=== PATIENT | male | born 1940 | race Caucasian/White ===

== ENCOUNTER 2024-10-28 12:31 | Inpatient (IN) | payer MEDICARE, MEDICAID, SELFPAY ==
[2024-10-28] VITALS (25 sets, daily range): BP systolic 99–145; BP diastolic 43–100; PULSE 90–121; RESP 16–29; TEMP 36.7–36.8; O2SAT 88–97; BMI 21.7; BMI 19.3
--- NOTE | 2024-10-28 12:56 | XRR_ITS ---
PROCEDURE INFORMATION: Exam: XR Chest Exam date and time: 10/28/2024 1:05 PM Age: 84 years old Clinical indication: Shortness of breath; Prior surgery; Surgery date: 6+ months; Surgery type: Pacemaker; Additional info: SOB TECHNIQUE: Imaging protocol: Radiologic exam of the chest. Views: 1 view. COMPARISON: No relevant prior studies available. FINDINGS: Tubes, catheters and devices: Cardiac pacemaker on the left with leads in satisfactory position. Lungs: Both lungs demonstrate diffuse hazy interstitial coarsening. I see no dense consolidation or mass. Pleural spaces: Unremarkable. No pleural effusion. No pneumothorax. Heart/Mediastinum: Unremarkable. No cardiomegaly. Bones/joints: Unremarkable. XR/XR chest 1V portable [id number] IMPRESSION: Hazy interstitial lung disease bilaterally. I am uncertain as to whether this represents chronic interstitial coarsening versus acute interstitial pneumonia
--- NOTE | 2024-10-28 12:58 | ECG_ITS ---
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 Measurements Intervals [place] Rate: 106 P: 65 [place]: 218 QRS: 66 QRSD: 106 T: 88 QT: 377 QTc: 503 Interpretive Statements SINUS TACHYCARDIA WITH FIRST DEGREE AV BLOCK POSSIBLE ANTERIOR MYOCARDIAL INFARCTION , OF INDETERMINATE AGE [30 ms Q WAVE IN V3/V4, OR R < 0.2 mV IN V4] MODERATE T-WAVE ABNORMALITY, CONSIDER LATERAL ISCHEMIA [-0.1+ mV T-WAVE IN I/aVL/V5/V6] No previous ECG available for comparison Electronically Signed On 10-28-2024 13:33:32 SHEET MILL SUPERVISOR by Radha Mehta M.D. [id number]
[2024-10-28 13:25] LABS: Basophils % 0.1 %; Eosinophils % 0.1 %; Hematocrit 46.9 % (37-53); Lymphocytes # 0.6 10^3/uL (0.8-4.8); Lymphocytes % 2.4 %; Mean Corpuscular HGB Conc 33.3 g/dL (30-55); Mean Corpuscular Hemoglobin 31.4 pg (27-33); Mean Corpuscular Volume 94.4 fl (82-101); Mean Platelet Volume 9.3 fL (7.4-10.4); Monocytes # 1.1 10^3/uL (0.2-0.9); Monocytes % 4.5 %; Neutrophils # 21.53 10^3/uL (1.8-7.7); Neutrophils % 92.1 %; Nucleated Red Blood Cells % 0 %; Platelet Count 321 10^3/cmm (157-399); Red Blood Count 4.97 10^6/uL (3.85-5.65); Red Cell Distribution Width 14.4 % (12.1-15.1)
[2024-10-28 13:26] LABS: ABG PCO2 33.6 mmHg (35-45); ABG PH Result 7.34 (7.35-7.45); Arterial Blood Gas Hematocrit 45.1 % (42-52); Base Excess ABG -6.9 mmol/L (-2.0-2.0); Blood Gas Allen Test Pos; Blood Gas Operator Identificat WALCI; Blood Gas Sample Site Radial, left; Blood Gas Sample Type Arterial; Carboxyhemoglobin 1.8 %THgb (0.4-20.1); HGB O2 Sat 92.4 % (95-100); Methemoglobin < 0.0 % (0.4-1.5); Oxygen Device NC; PO2 ABG 68.4 mmHg (80.0-100.0); Total Hemoglobin 14.7 g/dL (14-18)
--- NOTE | 2024-10-28 13:44 | PC.PHAR ---
Pts' family states pt has taken himself off of most medications. It is unknown when he last took them.
[2024-10-28 13:49] LABS: Troponin(5th) Baseline 238 ng/L (0-15)
[2024-10-28 13:52] LABS: Anion Gap 31.7 (5-19); Blood Urea Nitrogen 33 mg/dL (8-23); Calcium 9.4 mg/dL (8.5-10.5); Carbon Dioxide 20 mmol/L (22-29); Chloride 87 mmol/L (98-107); Creatinine Clr Calc Pharmacy 36.7451; Glucose 174 mg/dL (65-115); Osmolality Calculated 289 mOsm/kg (285-295); Potassium 4.7 mmol/L (3.5-5.1); Sodium 134 mmol/L (136-145)
[2024-10-28 14:02] LABS: Covid PCR NEGATIVE (Negative); Influenza A NEGATIVE (Negative); Influenza B NEGATIVE (Negative); Respiratory Syncytial Virus Ce NEGATIVE (Negative)
--- NOTE | 2024-10-28 14:05 | USR_ITS ---
PROCEDURE INFORMATION: Exam: US Duplex Right Lower Extremity Veins, Limited Exam date and time: 10/28/2024 3:41 PM Age: 84 years old Clinical indication: Pain; Leg, lower; Right; Additional info: Calf tenderness TECHNIQUE: Imaging protocol: Real-time duplex ultrasound of the right extremity with 2-D gan scale, color Doppler flow and spectral waveform analysis including responses to compression and other maneuvers (when performed) with image documentation. Limited exam was focused on the right lower extremity veins. COMPARISON: No relevant prior studies available. FINDINGS: Right deep veins: Unremarkable. The common femoral, femoral, proximal profunda femoral and popliteal veins are patent without thrombus. Normal Doppler waveforms. Normal compressibility and/or augmentation response. Superficial veins: Greater saphenous vein at the saphenofemoral junction is patent without thrombus. Soft tissues: Unremarkable. US/[place] [id number] IMPRESSION: No evidence of deep vein thrombosis.
--- NOTE | 2024-10-28 14:05 | CTR_ITS ---
PROCEDURE INFORMATION: Exam: CTA Chest With Contrast Exam date and time: 10/28/2024 2:42 PM Age: 84 years old Clinical indication: Pain; Chest pressure and on breathing; Additional info: Chest pain TECHNIQUE: Imaging protocol: Computed tomographic angiography of the chest with contrast. Exam focused on the arteries. 3D rendering (Not supervised by radiologist): MIP and/or 3D reconstructed images were created by the technologist. Radiation optimization: All CT scans at this facility use at least one of these dose optimization techniques: automated exposure control; mA and/or kV adjustment per patient size (includes targeted exams where dose is matched to clinical indication); or iterative reconstruction. Contrast material: OMNIPAQUE 350; Contrast volume: 72 ml; Contrast route: INTRAVENOUS (IV); COMPARISON: CR (CHEST, ) 10/28/2024 1:05 PM RADIATION DOSE METRICS: Total DLP (mGy-cm): 286.33 FINDINGS: Tubes, catheters and devices: Cardiac pacemaker on the left with leads in satisfactory position. Pulmonary arteries: Normal. No pulmonary emboli. Aorta: Unremarkable. No aortic aneurysm. No aortic dissection. Lungs: Both lungs demonstrate diffuse pulmonary edema. A 1.8 cm rounded nodule is noted in the medial aspect of the right lung apex. Pleural spaces: Small bilateral pleural effusions are noted. Heart: Mild cardiomegaly is noted. Lymph nodes: Unremarkable. No enlarged lymph nodes. Bones/joints: Unremarkable. No acute fracture. Soft tissues: Unremarkable. CT/CT angio chest PE protcl [id number] IMPRESSION: 1. Congestive heart failure with small pleural effusions 2. 1.8 cm right apical lung nodule suspicious for neoplasm. Further workup with PET-CT is recommended.For both low risk and high risk patients, consider CT Chest at 3 months, PET/CT, or biopsy. (Reference: Neetu) REFERENCES: Neetu Townsend, et al. Guidelines for Management of Incidental Pulmonary Nodules Detected on CT Images: From the Fleischner Society 2017. Radiology. 2017;284(1):228-243.
[2024-10-28 14:08] LABS: Digoxin 0.3 ng/mL (0.6-1.2)
[2024-10-28 14:13] LABS: NT Pro B Type Natriuretic Pept 32984 pg/mL (0-450)
[2024-10-28] MEDS: iohexol 350 mg/mL 500 mL Btl (per mL) IV (14:48)
--- NOTE | 2024-10-28 14:58 | ECG_ITS ---
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 Measurements Intervals [place] Rate: 109 P: 36 [place]: 215 QRS: 56 QRSD: 109 T: 107 QT: 339 QTc: 457 Interpretive Statements SINUS TACHYCARDIA WITH FIRST DEGREE AV BLOCK POSSIBLE ANTERIOR MYOCARDIAL INFARCTION , OF INDETERMINATE AGE [30 ms Q WAVE IN V3/V4, OR R < 0.2 mV IN V4] Compared to ECG 10/28/2024 12:42:29 T-wave abnormality no longer present Possible ischemia no longer present Myocardial infarct finding still present Electronically Signed On 10-29-2024 17:27:19 LINING STUFFER by Radha Mehta M.D. [id number]
[2024-10-28] MEDS: heparin 5,000 unit/mL INJ 1 mL IVP (15:18)
[2024-10-28] MEDS: heparin drip 25,000 UNIT/500 ML PREMIX 21 UNIT IV (15:31)
[2024-10-28 15:47] LABS: Troponin 5 2HR Delta -57.7 ABS# (0-10)
[2024-10-28 15:48] LABS: Troponin 5 2HR 180.3 ng/L (0-15)
--- NOTE | 2024-10-28 16:21 | ED_ITS ---
HPI - SOB/Dyspnea 2 General: Chief Complaint: Shortness of Breath/Dyspnea Stated Complaint: sob Time Seen by Provider: 10/28/24 12:36 History of Present Illness: HPI Narrative: This patient is an 84-year-old white male who presents to the emergency department via EMS with shortness of breath. Patient states he has been short of breath for the past 2 days. He has been coughing. Feels like he is getting phlegm caught in his throat. Denies having any chest pain. He has not had a fever. Patient's son came in later and states that his dad has been complaining of left arm pain for the past 2 weeks as well as right calf pain. Patient's past medical history includes hypercholesterolemia, hypertension and diabetes. He does have a pacemaker. Related Data Home Medications Medication Instructions Recorded Confirmed atorvastatin 80 mg tablet 80 mg PO .NOON 10/28/24 10/28/24 carvedilol 12.5 mg tablet 12.5 mg PO BID 10/28/24 10/28/24 clopidogrel 75 mg tablet 75 mg PO QAM 10/28/24 10/28/24 digoxin 125 mcg (0.125 mg) tablet 125 mcg PO QPM 10/28/24 10/28/24 ezetimibe 10 mg tablet 10 mg PO QAM 10/28/24 10/28/24 gabapentin 800 mg tablet 800 mg PO QID 10/28/24 10/28/24 lisinopril 2.5 mg tablet 2.5 mg PO QAM 10/28/24 10/28/24 metformin 1,000 mg tablet 1,000 mg PO BID 10/28/24 10/28/24 tramadol 50 mg tablet 100 mg PO QID PRN Pain 10/28/24 10/28/24 Allergies Allergy/AdvReac Type Severity Reaction Status Date / Time No Known Allergies Allergy Verified 10/28/24 12:40 Review of Systems 2 General: Reports: 10 or more systems reviewed and unremarkable except in HPI and below Resp: Reports: dyspnea and productive cough Physical Exam 2 Const: COMMON NORMALS: no acute distress, patient oriented x3 and no limitations GENERAL APPEARANCE: cooperative and comfortable HENMT: COMMON NORMALS: normocephalic, atraumatic, Normal nasal mucous membranes and turbinates present, moist oral mucous membranes and oropharynx normal HEAD & SCALP: normal to inspection, normocephalic and atraumatic F YULIYA & SINUS: normal facial exam NOSE: Normal nasal mucous membranes and turbinates present Eye: COMMON NORMALS: Equal, round and reactive pupils present, EOMs intact bilaterally and conjunctivae normal GENERAL EYE: appearance normal, both eyes and all related structures CONJUNCTIVA: Yes conjunctivae normal PUPIL: Yes Equal, round and reactive pupils present Neck/C-Spine: COMMON NORMALS: supple and no JVD Chest: COMMONS NORMALS: normal inspection of the chest Resp: COMMON NORMALS: normal respiratory effort AUSCULTATION: rhonchi Cardio: COMMON NORMALS: no JVD, regular rate, regular rhythm, No gallops present (Cardio), No murmurs present (Cardio) and No rub (Cardio) RATE: r egular rate RHYTHM: regular rhythm GI: COMMON NORMALS: Normal to inspection, nondistended, normoactive bowel sounds present, Soft to palpation and non-tender AUSCULTATION: Yes normoactive bowel sounds PALPATION: Yes Soft to palpation : COMMON NORMALS: Yes no CVA tenderness BLADDER/KIDNEY EXAM: Yes no CVA tenderness Back/Pelvis: COMMON NORMALS: no CVA tenderness and thoracic and lumbar spine normal to inspection Extremity: NARRATIVE EXTREMITY EXAM: Right calf tender to palpation. Neuro: COMMON NORMALS: patient oriented x3 and CN's II-XII intact bilaterally Psych: COMMON NORMALS: mental status grossly normal, Normal thought process present and cooperative THOUGHT PROCESS: Normal thought process present Skin: COMMON NORMALS: no rashes or lesions noted, turgor normal and no jaundice GENERAL SKIN EXAM: no rashes or lesions noted and turgor normal Course 2 Vital Signs: Vital signs: Vital Signs Temperature 98.1 F 10/28/24 12:41 Pulse Rate 110 H 10/28/24 16:00 Respiratory Rate 18 10/28/24 16:00 Blood Pressure 143/67 10/28/24 16:00 Pulse Oximetry 90 10/28/24 16:00 Oxygen Delivery Me thod Nasal Cannula 10/28/24 12:41 Oxygen Flow Rate 3 10/28/24 12:41 MDM - SOB/Dyspnea Medical Decision Making EKG revealed poor R wave progression through the anterior leads which could represent anterior MA/large Q waves. Unable to determine whether these are new or old. There is no EKG to compare this to. Chest x-ray was read by the radiologist as possible interstitial disease. Arterial blood gases on 3 L revealed a pH of 7.34 with a pCO2 of 34 and a pO2 of 68. Patient tested negative for COVID, flu and RSV. CBC revealed a white blood cell count of 23.4. BMP revealed a BUN of 33 and a creatinine of 1.6. Digoxin level 0.3. The baseline troponin was 238 with a 2-hour level of 180. Patient was placed on heparin and given a heparin bolus at this time delta 58. CT angiogram of the chest revealed congestive heart failure. No PE. There is a 1.8 cm nodule in the left apex concerning for possible neoplasm. Venous duplex scan of the right lower extremity did not reveal a DVT. I initially discussed the case with Dr. Mehta, neurobiologist. He recommended admitting to the hospitalist service and continuing the cardiac workup including echocardiogram. No need for acute intervention. I then discussed the case with Dr. Horta. Patient will be admitted to cardiac stepdown. Patient is not having any chest pain at this time. I did give him 40 mg of Lasix IV as well. Lab Data 10/28/24 13:16 10/28/24 13:16 Labs/Radiology: Radiology Impressions Chest X-Ray 10/28/24 12:56 IMPRESSION: Hazy interstitial lung disease bilaterally. I am uncertain as to whether this represents chronic interstitial coarsening versus acute interstitial pneumonia Chest CTA 10/28/24 14:05 IMPRESSION: 1. Congestive heart failure with small pleural effusions 2. 1.8 cm right apical lung nodule suspicious for neoplasm. Further workup with PET-CT is recommended.For both low risk and high risk patients, consider CT Chest at 3 months, PET/CT, or biopsy. (Reference: Neetu) REFERENCES: Neetu Townsend, et al. Guidelines for Management of Incidental Pulmonary Nodules Detected on CT Images: From the Fleischner Society 2017. Radiology. 2017;284(1):228-243. Venous Duplex 10/28/24 14:05 IMPRESSION: No evidence of deep vein thrombosis. Laboratory Results WBC 23.40 10^3/uL (3.29-11.43) H 10/28/24 13:16 RBC 4.97 10^6/uL (3.85-5.65) 10/28/24 13:16 Hgb 15.60 g/dL (11.27-16.99) 10/28/24 13:16 Hct 46.9 % (37-53) 10/28/24 13:16 MCV 94.4 fl (82-101) 10/28/24 13:16 MCH 31.4 pg (27-33) 10/28/24 13:16 MCHC 33.3 g/dL (30-55) 10/28/24 13:16 RDW 14.4 % (12.1-15.1) 10/28/24 13:16 Plt Count 321 10^3/cmm (157-399) 10/28/24 13:16 MPV 9.3 fL (7.4-10.4) 10/28/24 13:16 Neut % (Auto) 92.1 % 10/28/24 13:16 Lymph % (Auto) 2.4 % 10/28/24 13:16 [place] % (Auto) 4.5 % 10/28/24 13:16 Eos % (Auto) 0.1 % 10/28/24 13:16 Baso % (Auto) 0.1 % 10/28/24 13:16 Neut # (Auto) 21.53 10^3/uL (1.8-7.7) H 10/28/24 13:16 Lymph # (Auto) 0.6 10^3/uL (0.8-4.8) L 10/28/24 13:16 [place] # (Auto) 1.1 10^3/uL (0.2-0.9) H 10/28/24 13:16 Eos # (Auto) 0.0 10^3/uL (0.0-0.8) 10/28/24 13:16 Baso # (Auto) 0.0 10^3/uL (0.0-0.1) 10/28/24 13:16 Nucleated RBC % (auto) 0 % 10/28/24 13:16 Nucleated RBCs # 0.0 /100WBC 10/28/24 13:16 Specimen Type Arterial 10/28/24 13:15 Sample Site Radial, left 10/28/24 13:15 ABG pH 7.34 (7.35-7.45) L 10/28/24 13:15 ABG pCO2 33.6 mmHg (35-45) L 10/28/24 13:15 ABG pO2 68.4 mmHg (80.0-100.0) L 10/28/24 13:15 ABG HCO3 18.0 mmol/L (22-26) L 10/28/24 13:15 ABG Base Excess -6.9 mmol/L (-2.0-2.0) L 10/28/24 13:15 Sea Test Pos 10/28/24 13:15 Hematocrit 45.1 % (42-52) 10/28/24 13:15 Hgb O2 Saturation 92.4 % (95-100) L 10/28/24 13:15 Carboxyhemoglobin 1.8 %THgb (0.4-20.1) 10/28/24 13:15 Methemoglobin < 0.0 % (0.4-1.5) L 10/28/24 13:15 Total Hemoglobin 14.7 g/dL (14-18) 10/28/24 13:15 O2 Delivery Device Nc 10/28/24 13:15 O2 Liters/Min 3.0 % 10/28/24 13:15 Corrugated Fastener Driver ID [place] 10/28/24 13:15 Sodium 134 mmol/L (136-145) L 10/28/24 13:16 Potassium 4.7 mmol/L (3.5-5.1) 10/28/24 13:16 Chloride 87 mmol/L (98-107) L 10/28/24 13:16 Carbon Dioxide 20 mmol/L (22-29) L 10/28/24 13:16 Anion Gap 31.7 (5-19) H 10/28/24 13:16 BUN 33 mg/dL (8-23) H 10/28/24 13:16 Creatinine 1.6 mg/dL (0.7-1.2) H 10/28/24 13:16 GFR Calculation Not Reportable 10/28/24 13:16 Glucose 174 mg/dL (65-115) H 10/28/24 13:16 Calculated Osmolality 289 mOsm/kg (285-295) 10/28/24 13:16 Calcium 9.4 mg/dL (8.5-10.5) 10/28/24 13:16 Troponin T Baseline 238 ng/L (0-15) H* 10/28/24 13:16 Troponin T 120 Minute 180.3 ng/L (0-15) H 10/28/24 15:22 Delta Troponin T -57.7 ABS# (0-10) L 10/28/24 15:22 NT-Pro-B Natriuret Pep 36987 pg/mL (0-450) H 10/28/24 13:16 Digoxin 0.3 ng/mL (0.6-1.2) L 10/28/24 13:16 Coronavirus (PCR) Negative (Negative) 10/28/24 13:18 Influenza A (PCR) Negative (Negative) 10/28/24 13:18 Influenza Type B (PCR) Negative (Negative) 10/28/24 13:18 RSV (PCR) Negative (Negative) 10/28/24 13:18 All radiology interpretation(s) finalized by discharge Discharge Plan Discharge Condition: Stable Prescriptions: No Action atorvastatin 80 mg Tablet 80 mg PO .NOON carvedilol 12.5 mg Tablet 12.5 mg PO BID Rx Instructions: must administer with a meal/food clopidogrel 75 mg Tablet 75 mg PO QAM tramadol 50 mg Tablet 100 mg PO QID PRN (Reason: Pain) gabapentin 800 mg Tablet 800 mg PO QID metformin 1,000 mg Tablet 1,000 mg PO BID digoxin 125 mcg (0.125 mg) Tablet 125 mcg PO QPM lisinopril 2.5 mg Tablet 2.5 mg PO QAM ezetimibe 10 mg Tablet 10 mg PO QAM Coding Level of Care Code ED Sprayer Leather for Emelia Rollins
--- NOTE | 2024-10-28 17:17 | P.HP_ITS ---
Providers/Chief Complaint 2 Admitting Physician: Barrera Horta MD Chief Complaint: sob History of Present Illness Norberto Atkins is a 84 year old male with a past medical history of hypertension, hyperlipidemia, smoking, no reported history of CAD, no reported history of strokes, type 2 diabetes mellitus, history of skin cancer no recent reported of COPD, who presents to [facility] due to chest pain and shortness of breath. Currently patient is alert oriented x 3, following all commands, currently on 3 L, heart rate 110, blood pressure 143/67, he is in mild respiratory distress complaining of shortness of breath tachypnea, tachycardia. According to patient, he has been having intermittent chest pain for the last few days, has had progressive increased shortness of breath with lower extremity edema, orthopnea, paroxysmal nocturnal dyspnea, he has had also a cough, no fevers, no chills, no abdominal pain, no back pain, no lightheadedness, dizziness, no dysuria. -I had a detailed discussion with patient and his son about findings -First thing his CT angiogram of the chest did not show pulmonary embolism but did show a right upper lobe nodule highly concerning for malignancy, given his history of smoking, I do not believe that this is the source of the shortness of breath but certainly this should be taken account in terms of his goals of care, he will eventually need to follow-up with pulmonary, for consideration of biopsy -In terms of his blood work and his EKG findings, he has an NSTEMI the question is is that does he have type I versus type II NSTEMI, he is EKG does show Q waves in the anterior leads, he might have had a completed infarct a few days ago when he was having chest pain, and now worsening the residual effects, but it is difficult to say currently, the plan is to anticoagulate him pleural aspirin, statin, Plavix, consult cardiology, obtain a cardiac echocardiogram and decide how he progresses decision of stress testing versus an angiogram depending on his clinical progress his kidney function is further tests -He did also have severe CHF exacerbation, likely systolic as BNP is over 30,000 and given his respiratory status we will have to diurese and watch his kidney function -Discussed his CKD he could be CKD versus ELENA or cardiorenal syndrome -Currently inpatient status is stable, prognosis is guarded, but my worry is worsening respiratory failure, worsening CHF risk of cardiac events risks of cardiac arrhythmias -Discussed morbidity and mortality associate with his underlying condition -Patient and son voiced understanding, all questions answered, CODE STATUS discussed in detail, patient wants to be a full code however he does tell me that he is 84 if his condition is too far gone he just wants to be kept comfortable, but wants to remain a full code for now -Discussed his elevated white blood cell count I am suspicious he might have an infection, we will start him on broad-spectrum antibiotic therapy, follow his cultures Review of Systems 2 Const: Reports: fatigue and malaise; Denies: fever(s) or chills Card: Reports: chest pain Resp: Reports: dyspnea GI: Denies: abdominal pain : Denies: flank pain or difficulty urinating Neuro: Denies: headache(s), numbness in extremities or weakness in extremities Medications/Allergies Home Medications Medication Instructions Recorded Confirmed Last Taken Type atorvastatin 80 mg tablet 80 mg PO .NOON 10/28/24 10/28/24 Unknown History carvedilol 12.5 mg tablet 12.5 mg PO BID 10/28/24 10/28/24 Unknown History clopidogrel 75 mg tablet 75 mg PO QAM 10/28/24 10/28/24 Unknown History digoxin 125 mcg (0.125 mg) tablet 125 mcg PO QPM 10/28/24 10/28/24 Unknown History ezetimibe 10 mg tablet 10 mg PO QAM 10/28/24 10/28/24 Unknown History gabapentin 800 mg tablet 800 mg PO QID 10/28/24 10/28/24 Unknown History lisinopril 2.5 mg tablet 2.5 mg PO QAM 10/28/24 10/28/24 Unknown History metformin 1,000 mg tablet 1,000 mg PO BID 10/28/24 10/28/24 Unknown History tramadol 50 mg tablet 100 mg PO QID PRN Pain 10/28/24 10/28/24 Unknown History Allergies Allergy/AdvReac Type Severity Reaction Status Date / Time No Known Allergies Allergy Verified 10/28/24 12:40 PFSH Acute 2 PFSH: Medical History (Updated 10/28/24 @ 17:28 by Barrera Horta MD) History of type 2 diabetes mellitus History of hyperlipidemia History of hypertension Surgical History (Updated 10/28/24 @ 17:25 by Barrera Horta MD) History of appendectomy Family History Father CAD (coronary artery disease) Social History (Updated 10/28/24 @ 17:26 by Barrera Horta MD) Smoking and tobacco/nicotine status: current every day tobacco/nicotine user Alcohol intake: never Substance/Drug Use: never Vitals/I&O/Wt Last Vital Signs Temp 98.1 F 10/28/24 12:41 Pulse 110 H 10/28/24 16:00 Resp 18 10/28/24 16:00 BP 143/67 10/28/24 16:00 Pulse Ox 90 10/28/24 16:00 O2 Del Method Nasal Cannula 10/28/24 12:41 O2 Flow Rate 3 10/28/24 12:41 10/28/24 10/28/24 10/28/24 06:59 14:59 22:59 Intake Total 0 / 0 Balance 0 / 0 Weight last 48 hrs Weight 72.575 kg Physical Exam 2 Const: COMMON NORMALS: no acute distress and patient oriented x3 Eye: COMMON NORMALS: Equal, round and reactive pupils present and EOMs intact bilaterally Lymph: LYMPHATIC: no lymphadenopathy noted Resp: COMMON NORMALS: normal respiratory effort, No retractions and No use of accessory muscles AUSCULTATION: crackles and wheezes OTHER: Tachypnea Cardio: COMMON NORMALS: regular rate, regular rhythm, S1 normal heart sound present and S2 normal heart sound present RATE: tachycardic RHYTHM: r egular rhythm HEART SOUNDS: S1 normal heart sound present and S2 normal heart sound present GI: COMMON NORMALS: Normal to inspection, nondistended, normoactive bowel sounds present, Soft to palpation and non-tender Extremity: COMMON NORMALS: no pedal edema Neuro: COMMON NORMALS: patient oriented x3, CN's II-XII intact bilaterally and moves all extremities Psych: COMMON NORMALS: mental status grossly normal Sepsis: Is patient septic: No Focused sepsis exam performed: Yes Focused sepsis exam: DP PT pulses palpable, cap refill greater than 2 seconds Date exam was performed: 10/28/24 Time exam was performed: 17:27 Data 10/28/24 13:16 10/28/24 13:16 Micro: Microbiology 10/28/24 13:16 Blood Culture - Preliminary Blood SPECIMEN COLLECTED 10/28/24 13:12 Blood Culture - Preliminary Blood SPECIMEN COLLECTED A&P Assessment and plan (1) NSTEMI (non-ST elevated myocardial infarction): (2) Systolic CHF, acute: (3) Acute hypoxic respiratory failure: (4) Type 2 diabetes mellitus: (5) Increased anion gap metabolic acidosis: (6) Acute kidney injury: (7) Leukocytosis: (8) Right upper lobe pulmonary nodule: (9) COPD exacerbation: Plan Acute hypoxic respiratory failure -Multifactorial -Acute systolic CHF exacerbation -COPD exacerbation -Plan -Monitor respiratory status closely -Lasix 40 mg IV twice daily, 1 dose metolazone -Monitor urine output, monitor creatinine -Cardiac echocardiogram -Solu-Medrol 125 followed by 40 mg IV every 8 hours -DuoNeb -Budesonide -Follow-up blood cultures -Sputum culture -Full code -Heparin drip for DVT prophylaxis Leukocytosis -Follow-up Pro-Yong, CRP -Follow blood cultures -Follow sputum culture -Follow UA -Start Rocephin, Zithromycin for concerns for respiratory tract infection given complaints of cough Systolic CHF -Cardiac echocardiogram ordered -Monitor respiratory status closely NSTEMI -Type I versus type II -Given complaints of chest pain, highly concerned for type I -Heparin drip -Aspirin, statin, Plavix, Coreg -Cardiac echo -Cardiology consulted -Diurese as above COPD exacerbation -As above Increased anion gap metabolic acidosis -Check ketones to ensure patient does not have DKA Type 2 diabetes mellitus, low-dose sliding scale Right upper lobe, apical lung mass 1.8 cm right apical lung nodule suspicious for neoplasm. Further workup with PET-CT is recommended.For both low risk and high risk patients, consider CT Chest at 3 months, PET/CT, or biopsy. (Reference: Neetu) -Follow-up with pulmonary as outpatient Attestations 2 Medical Necessity Statement*: Patient requires hospitalization, inpatient, greater than 2 midnights, for acute hypoxic respiratory failure, leukocytosis, systolic CHF, NSTEMI, COPD, increased anion gap metabolic acidosis, a right upper lobe lung mass Diagnoses NSTEMI (non-ST elevated myocardial infarction) I21.4 Systolic CHF, acute I50.21 Acute hypoxic respiratory failure J96.01 Type 2 diabetes mellitus E11.9 Increased anion gap metabolic acidosis E87.29 Acute kidney injury N17.9 Leukocytosis D72.829 Right upper lobe pulmonary nodule R91.1 COPD exacerbation J44.1
--- NOTE | 2024-10-28 17:20 | USCV_ITS ---
Norberto Atkisn Age: 84 Gender: M : 1940 Exam Date: 10/28/2024 20:42 Ordering Phys: Barrera Horta MD Technologist: Kyle Rees [place] [facility] [place]: sob BP: 126 / 87 HR: Rhythm: Sinus Technical Quality: Adequate MEASUREMENTS (Male / Female) Normal Values 2D ECHO LV Diastolic Diameter PLAX 5.7 cm 4.2 - 5.9 / 3.9 - 5.3 cm IVS Diastolic Thickness 1.0 cm 0.6 - 1.0 / 0.6 - 0.9 cm IVS Systolic Thickness 1.2 cm LVPW Diastolic Thickness 1.2 cm 0.6 - 1.0 / 0.6 - 0.9 cm LVPW Systolic Thickness 1.7 cm LVOT Diameter 2.0 cm LV Ejection Fraction 2D Teich 34.2 % LV Ejection Fraction MOD 4C 18.8 % LV Ejection Fraction MOD 2C 16.3 % LV Ejection Fraction 2C AL 16.7 % LA Diameter 3.4 cm RA Systolic Volume 4C AL 32.8 ml RA Systolic Volume 4C MOD 33.1 ml LA Sys Volume AL 45.7 cm cubed LA Sys Volume Index AL 26.4 cm cubed/m squared Aorta at Sinotubular Diameter 1.7 cm IVC Diameter 1.7 cm M-MODE LA Ao Ratio MM 1.0 AV Cusp Separation MM 0.9 cm FINDINGS Left Ventricle Severe diffuse hypokinesia left ventricular ejection fraction of around 17%. Moderately dilated LV cavity Right Ventricle Pacemaker wire in the right ventricle. Possibly of normal size ejection fraction Right Atrium Possibly of normal size Left Atrium Appears mildly dilated Mitral Valve Thickened mitral valve. Mild mitral annular calcification. Aortic Valve Thickened aortic valve with restricted mobility Tricuspid Valve Could not be visualized well Pulmonic Valve Could not be visualized well Pericardium No pericardial effusion. Aorta Normal aortic annulus size. IVC Possibly of normal size CONCLUSIONS Limited 2D echo, Severe diffuse hypokinesia left ventricular ejection fraction of around 17%. Moderately dilated LV cavity. Left atrium appears to be mildly dilated Thickened mitral valve. Mild mitral annular calcification. Thickened aortic valve with restricted mobility. There is no pericardial effusion. Technically difficult study because of poor apical window No similar previous studies are available for comparison Dr Radha Mehta MD [facility] (Electronically Signed) Final Date: 28 October 2024 21:23 S
[2024-10-28 17:33] LABS: Ketone (Acetest) Serum Negative (Negative)
[2024-10-28 17:34] LABS: C Reactive Protein 37.7 mg/L (0.0-4.9); Procalcitonin 21.48 ng/mL (0-0.5)
[2024-10-28 17:41] LABS: Lipase 73 U/L (13-60)
[2024-10-28] MEDS: FUROsemide 10 mg/mL SDV 4mL 40 MG IVP (17:54)
[2024-10-28] MEDS: cefTRIAXone 1,000 mg SDV 1000 MG IVP (17:56)
[2024-10-28] MEDS: AZITHROMYCIN ADD-Vantage 500 MG in 0.9% NaCl ADD-Vantage 250 ML 250 MG IV (17:57)
[2024-10-28] MEDS: metOLazone 5 MG Tablet PO (18:03)
[2024-10-28] MEDS: potassium chloride ER 20 mEq Tablet PO (18:03)
[2024-10-28 18:22] LABS: NT Pro B Type Natriuretic Pept 37737 pg/mL (0-450)
--- NOTE | 2024-10-28 18:36 | P.CONIM_ITS ---
Providers/Reason For Consult 2 Consulting Physician/Specialty*: VENECIA Mehta MD/cardiology Reason for Consult*: Patient with elevated troponin T and abnormal EKG Requesting Physician: Dr. Horta Attending Physician: Barrera Horta MD History of Present Illness History of Present Illness Norberto Atkins is a 84 year old male, he is admitted to hospital through the emergency room where he presented with complaints of progressive shortness of breath and weakness. He was found to elevated troponin T. Cardiology consult is requested for further cardiac evaluation recommendations. This patient extremely poor historian. He is hard of hearing and also is very forgetful. Information is mostly from his son and from the medical staff. According to son, he was having shortness of breath since . His family members called an ambulance on because of shortness of breath. But the patient refused to come to the hospital. His symptoms started getting worse. He apparently lives alone and was finding it difficult to ambulate. He was found to be extremely weak and tired. For these reasons, he was brought to the hospital emergency room. He has been having a cough. Also possible low- grade fever. He was found to elevated white cell count in the emergency room. On further questioning, he also is complaining of chest pain off and on. He is not able to tell exactly how long he been having chest pain. According to him, he has pain in the upper substernal area intermittently. No chest pain at this point. He has no previous history for coronary disease, myocardial infarction or congestive heart failure. He had a permanent pacer implantation in [place], [place] many years ago. Details are not available. He also was told to have a valve problem and is being treated medically, as per his son. He has a history of peripheral artery disease. According to his son, he had a stent placed in his right? Iliac region 30 years ago. Patient is a heavy smoker. He smokes at least a pack a day for the last 70 years or so. He is noted to have COPD. No alcohol abuse or any other substance abuse. Review of Systems 2 Narrative: CONSTITUTIONAL: ? Low-grade fever and cough EYES: No blurring of vision or other visual disturbances lately. ENT: No hoarseness of voice, auditory disturbances or sore throat. CARDIOVASCULAR: As mentioned above. RESPIRATORY: Severe COPD and ongoing smoking abuse GASTROINTESTINAL: No hematemesis or melena. GENITOURINARY: ? Chronic kidney disease NEURO: No transient ischemic attacks or amaurosis. PSYCHIATRIC: No history of psychosis or major depression. HEMATOLOGIC: No bleeding disorders or significant anemia. ENDOCRINE: No history of polyuria or polydipsia. MUSCULOSKELETAL: No recent joint pain or swelling. ALLERGY/IMMUNOLOGY: As mentioned above. Medications/Allergies Home Medications Medication Instructions Recorded Confirmed Last Taken Type atorvastatin 80 mg tablet 80 mg PO .NOON 10/28/24 10/28/24 Unknown History carvedilol 12.5 mg tablet 12.5 mg PO BID 10/28/24 10/28/24 Unknown History clopidogrel 75 mg tablet 75 mg PO QAM 10/28/24 10/28/24 Unknown History digoxin 125 mcg (0.125 mg) tablet 125 mcg PO QPM 10/28/24 10/28/24 Unknown History ezetimibe 10 mg tablet 10 mg PO QAM 10/28/24 10/28/24 Unknown History gabapentin 800 mg tablet 800 mg PO QID 10/28/24 10/28/24 Unknown History lisinopril 2.5 mg tablet 2.5 mg PO QA 10/28/24 10/28/24 Unknown History metformin 1,000 mg tablet 1,000 mg PO BID 10/28/24 10/28/24 Unknown History tramadol 50 mg tablet 100 mg PO QID PRN Pain 10/28/24 10/28/24 Unknown History Allergies Allergy/AdvReac Type Severity Reaction Status Date / Time No Known Allergies Allergy Verified 10/28/24 12:40 Current Medications Generic Name Dose Route Start Last Admin Trade Name Freq PRN Reason Stop Dose Admin Ceftriaxone Sodium 1,000 mg 10/28/24 17:00 10/28/24 17:56 Ceftriaxone 1,000 Mg Sdv IVP 1,000 mg Q24H CHRISTOFER Administration Protocol Heparin Sodium/Sodium Chloride 25,000 unit in 500 mls @ 0 mls/hr 10/28/24 14:00 10/28/24 15:31 Heparin Drip IV 14.47 unit/kg/hr CONT CHRISTOFER 21 mls/hr Administration Protocol Per Protocol Azithromycin 500 mg/ Sodium 250 mls @ 250 mls/hr 10/28/24 17:00 10/28/24 17:57 Chloride IV 250 mls/hr Q24H CHRISTOFER Administration Protocol PFSH Acute 2 PFSH: Medical History History of type 2 diabetes mellitus History of hyperlipidemia History of hypertension Surgical History History of appendectomy Family History Father CAD (coronary artery disease) Social History Smoking and tobacco/nicotine status: current every day tobacco/nicotine user Alcohol intake: never Substance/Drug Use: never Vitals/I&O/Wt Last Vital Signs Temp 98.1 F 10/28/24 12:41 Pulse 112 H 10/28/24 18:30 Resp 23 H 10/28/24 18:30 BP 103/60 10/28/24 18:30 Pulse Ox 97 10/28/24 18:30 O2 Del Method Nasal Cannula 10/28/24 12:41 O2 Flow Rate 3 10/28/24 12:41 10/28/24 10/28/24 10/28/24 06:59 14:59 22:59 Intake Total 0 / 0 Balance 0 / 0 Weight last 48 hrs Weight 160 lb Physical Exam 2 Const: OTHER: GENERAL: The patient is alert and oriented times three. Not in any acute distress. HEENT: No significant pallor, icterus or lymphadenopathy.Oral cavity: There are no mucous membrane lesions. NECK: Trachea appears to be central. No masses noted. No JVD or thyromegaly appreciated. RESPIRATORY: Chest is symmetrical. No intercostals muscle retraction or any accessory muscle activation. There is no chest wall tenderness. Breath sounds are heard bilaterally. Occasional expiratory wheeze no evidence of any consolidation. BREASTS: Deferred. HEART: The heart sounds are normal. No S3 or S4. No significant murmurs. No pericardial rub ABDOMEN: No vessel pulsations or distention. No tenderness. No organomegaly appreciated. Bowel sounds are normally heard. : Deferred. RECTAL: Deferred. LYMPHATIC: No lymphadenopathy noted in the neck. EXTREMITIES: No edema or cyanosis. No clubbing. MUSCULOSKELETAL: No acute joint deformities or swelling SKIN: There are no significant rashes or ecchymosis NEUROPSYCHIATRIC: The patient is alert and oriented x3. Appears to be in a good mood. No tremors or rigidity noted. Data 10/28/24 13:16 10/28/24 13:16 Other Labs: Laboratory Last Values WBC 23.40 10^3/uL (3.29-11.43) H 10/28/24 13:16 RBC 4.97 10^6/uL (3.85-5.65) 10/28/24 13:16 Hgb 15.60 g/dL (11.27-16.99) 10/28/24 13:16 Hct 46.9 % (37-53) 10/28/24 13:16 MCV 94.4 fl (82-101) 10/28/24 13:16 MCH 31.4 pg (27-33) 10/28/24 13:16 MCHC 33.3 g/dL (30-55) 10/28/24 13:16 RDW 14.4 % (12.1-15.1) 10/28/24 13:16 Plt Count 321 10^3/cmm (157-399) 10/28/24 13:16 MPV 9.3 fL (7.4-10.4) 10/28/24 13:16 Neut % (Auto) 92.1 % 10/28/24 13:16 Lymph % (Auto) 2.4 % 10/28/24 13:16 [place] % (Auto) 4.5 % 10/28/24 13:16 Eos % (Auto) 0.1 % 10/28/24 13:16 Baso % (Auto) 0.1 % 10/28/24 13:16 Neut # (Auto) 21.53 10^3/uL (1.8-7.7) H 10/28/24 13:16 Lymph # (Auto) 0.6 10^3/uL (0.8-4.8) L 10/28/24 13:16 [place] # (Auto) 1.1 10^3/uL (0.2-0.9) H 10/28/24 13:16 Eos # (Auto) 0.0 10^3/uL (0.0-0.8) 10/28/24 13:16 Baso # (Auto) 0.0 10^3/uL (0.0-0.1) 10/28/24 13:16 Nucleated RBC % (auto) 0 % 10/28/24 13:16 Nucleated RBCs # 0.0 /100WBC 10/28/24 13:16 Specimen Type Arterial 10/28/24 13:15 Sample Site Radial, left 10/28/24 13:15 ABG pH 7.34 (7.35-7.45) L 10/28/24 13:15 ABG pCO2 33.6 mmHg (35-45) L 10/28/24 13:15 ABG pO2 68.4 mmHg (80.0-100.0) L 10/28/24 13:15 ABG HCO3 18.0 mmol/L (22-26) L 10/28/24 13:15 ABG Base Excess -6.9 mmol/L (-2.0-2.0) L 10/28/24 13:15 Sea Test Pos 10/28/24 13:15 Hematocrit 45.1 % (42-52) 10/28/24 13:15 Hgb O2 Saturation 92.4 % (95-100) L 10/28/24 13:15 Carboxyhemoglobin 1.8 %THgb (0.4-20.1) 10/28/24 13:15 Methemoglobin < 0.0 % (0.4-1.5) L 10/28/24 13:15 Total Hemoglobin 14.7 g/dL (14-18) 10/28/24 13:15 O2 Delivery Device Nc 10/28/24 13:15 O2 Liters/Min 3.0 % 10/28/24 13:15 Water Pollution Scientist ID [place] 10/28/24 13:15 Sodium 134 mmol/L (136-145) L 10/28/24 13:16 Potassium 4.7 mmol/L (3.5-5.1) 10/28/24 13:16 Chloride 87 mmol/L (98-107) L 10/28/24 13:16 Carbon Dioxide 20 mmol/L (22-29) L 10/28/24 13:16 Anion Gap 31.7 (5-19) H 10/28/24 13:16 BUN 33 mg/dL (8-23) H 10/28/24 13:16 Creatinine 1.6 mg/dL (0.7-1.2) H 10/28/24 13:16 GFR Calculation Not Reportable 10/28/24 13:16 Glucose 174 mg/dL (65-115) H 10/28/24 13:16 Calculated Osmolality 289 mOsm/kg (285-295) 10/28/24 13:16 Calcium 9.4 mg/dL (8.5-10.5) 10/28/24 13:16 Troponin T Baseline 238 ng/L (0-15) H* 10/28/24 13:16 Troponin T 120 Minute 180.3 ng/L (0-15) H 10/28/24 15:22 Delta Troponin T -57.7 ABS# (0-10) L 10/28/24 15:22 C-Reactive Protein 37.7 mg/L (0.0-4.9) H 10/28/24 13:16 NT-Pro-B Natriuret Pep 80210 pg/mL (0-450) H 10/28/24 13:16 NT-Pro-B Natriuret Pep 36353 pg/mL (0-450) H 10/28/24 13:16 Lipase 73 U/L (13-60) H 10/28/24 13:16 Procalcitonin 21.48 ng/mL (0-0.5) H 10/28/24 13:16 Digoxin 0.3 ng/mL (0.6-1.2) L 10/28/24 13:16 Serum Ketones Negative (Negative) 10/28/24 13:16 Coronavirus (PCR) Negative (Negative) 10/28/24 13:18 Influenza A (PCR) Negative (Negative) 10/28/24 13:18 Influenza Type B (PCR) Negative (Negative) 10/28/24 13:18 RSV (PCR) Negative (Negative) 10/28/24 13:18 Micro: Microbiology 10/28/24 13:16 Blood Culture - Preliminary Blood SPECIMEN COLLECTED 10/28/24 13:12 Blood Culture - Preliminary Blood SPECIMEN COLLECTED Other data: EKG showed sinus tachycardia with a rate of 109 bpm. Poor R wave progression. Nonspecific T wave changes. 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 No flow was detected in the posterior tibial or dorsalis pedis arteries. No similar previous studies are available for comparison A&P Assessment and plan (1) NSTEMI (non-ST elevated myocardial infarction): This patient has clinical features of a non-ST elevation myocardial infarction. Currently he has no chest pain. EKG changes are nonspecific. Serial enzymes are pending. He may be treated with a subcu Lovenox, Plavix, aspirin (2) Congestive heart failure: The LV function is not known. Details of the cardiac history is not available at this time The BNP is markedly elevated. We may go ahead and do an echocardiogram to evaluate the LV function and decide on further management. Qualifiers: Heart failure type: unspecified Heart failure chronicity: unspecified Qualified Code(s): I50.9 - Heart failure, unspecified (3) Dyslipidemia: Continue other current medications. (4) Type 2 diabetes mellitus: The blood sugar need to be closely monitored. Qualifiers: Diabetes mellitus [facility] insulin use: without termite exterminator use Diabetes mellitus complication status: with circulatory complication Diabetes mellitus complication detail: with peripheral angiopathy without gangrene Qualified Code(s): E11.51 - Type 2 diabetes mellitus with diabetic peripheral angiopathy without gangrene (5) Acute lower limb ischemia: Patient has no detectable flow in the common femoral artery on the right side. Possible stent in the popliteal artery appears to be occluded Patient may benefit from urgent revascularization. (6) Chronic kidney disease (CKD): Previous kidney function is not known. Qualifiers: Chronic kidney disease stage: stage 3 (moderate) Chronic kidney disease stage 3 subtype: stage 3a (GFR 45-59) Qualified Code(s): N18.31 - Chronic kidney disease, stage 3a (7) Lung mass: This needs to be further evaluated. (8) Presence of permanent cardiac pacemaker: This will be interrogated. Details are not available. (9) Leukocytosis: Possible pneumonia. He is on empiric antibiotics. Qualifiers: Leukocytosis type: unspecified Qualified Code(s): D72.829 - Elevated white blood cell count, unspecified (10) COPD exacerbation: Management as per the primary. Plan Patient restarted on heparin, Plavix, aspirin and other symptomatic measures. I will be consulting Dr. Alvarado to consider intervention for the acute limb ischemia He may requires a coronary angiogram sometime down the line. Echocardiogram tonight Patient with clinical progress, further recommendations will be made. Thank you for the opportunity to evaluate this patient make these recommendations Consult Attestations 2 Medical Necessity Statement: Patient requires continued hospital stay for close monitoring and further management Coding Level of Care Code 86759 Diagnoses NSTEMI (non-ST elevated myocardial infarction) I21.4 Congestive heart failure, unspecified HF chronicity, unspecified heart failure type I50.9 Heart failure type: unspecified Heart failure chronicity: unspecified Dyslipidemia E78.5 Type 2 diabetes mellitus with diabetic peripheral angiopathy without gangrene, without long-term current use of insulin E11.51 Diabetes mellitus [facility] insulin use: without [facility] use Diabetes mellitus complication status: with circulatory complication Diabetes mellitus complication detail: with peripheral angiopathy without gangrene Acute lower limb ischemia I99.8 Stage 3a chronic kidney disease N18.31 Chronic kidney disease stage: stage 3 (moderate) Chronic kidney disease stage 3 subtype: stage 3a (GFR 45-59) Lung mass R91.8 Presence of permanent cardiac pacemaker Z95.0 Leukocytosis, unspecified type D72.829 Leukocytosis type: unspecified COPD exacerbation J44.1
--- NOTE | 2024-10-28 18:58 | ECG_ITS ---
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 Measurements Intervals [place] Rate: 111 P: 22 HI: 212 QRS: 23 QRSD: 109 T: 90 QT: 381 QTc: 520 Interpretive Statements SINUS TACHYCARDIA WITH FIRST DEGREE AV BLOCK POSSIBLE LEFT ATRIAL ENLARGEMENT [-0.1mV P-WAVE IN V1/V2] POSSIBLE ANTERIOR MYOCARDIAL INFARCTION , OF INDETERMINATE AGE [30 ms Q WAVE IN V3/V4, OR R < 0.2 mV IN V4] Compared to ECG 10/28/2024 14:59:25 No significant changes Electronically Signed On 10-29-2024 17:27:28 FILM TESTS CHECKER by Radha Mehta M.D. [email or web address]
--- NOTE | 2024-10-28 19:15 | USCV_ITS ---
Norberto Atkins Age: 84 Gender: M : 1940 Exam Date: 10/28/2024 19:23 Ordering Phys: Andrea Larios DO Technologist: Kyle Rees [place]am Location[place] [facility] [place] Indication: right leg pain Risk Factors: Previous Vascular Surgery: RIGHT LEFT Waveform Velocity (cm/s) Velocity (cm/s) Waveform Monophasic 6.0 Iliac Prox Monophasic 10.0 Iliac Mid Monophasic 13.0 Iliac Distal N/A 4.0 SFA Prox Monophasic 7.0 SFA Dist FINDINGS Sluggish flow is noted on the right iliac artery. Some trickling of flow was noted in the distal SFA. The there is a long stented segment of the popliteal artery. Some trickling of flow was noted in the distal segment distal segment area. No flow was detected in the posterior tibial and dorsalis pedis arteries. 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 No flow was detected in the posterior tibial or dorsalis pedis arteries. No similar previous studies are available for comparison Dr Radha Mehta MD [facility] (Electronically Signed) Final Date: 28 October 2024 20:23 S
[2024-10-28 20:35] LABS: Estmated Average Glucose 120; Hemoglobin A1C 5.8 % (4.0-6.0)
[2024-10-28 20:54] LABS: Glucose Point of Care 156 mg/dL (70-110)
--- NOTE | 2024-10-28 20:57 | W.PM.OPSUD ---
Surgery/Procedure H&P Update DATE OF PROCEDURE: October 28, 2024 DATE H&P PERFORMED: 10/28/24 H&P UPDATE INFORMATION: I have reviewed H&P completed within last 30 days, I have examined patient prior to procedure and Changes to prior documentation as noted here CHANGES TO PREVIOUS DOCUMENTATION: Patient has acute onset severe right leg pain below the knee since morning. No dopplerable pulses. Doppler ultrasound showed occluded right SENIOR IT ENGINEER, minimal flow seen in the distal popliteal and SFA. No flow below the knee. Patient has intact sensation and movement. PREOP DIAGNOSIS: Acute limb ischemia PRIMARY INDICATION FOR PROCEDURE: Acute limb ischemia PLANNED PROCEDURE: Peripheral angiogram with possible intervention PATIENT REASSESSED PRIOR TO SEDATION, WITH NO CHANGE NOTED: Yes PHYSICAL EXAM: alert and oriented x 3 OTHER PERTINENT EXAM FINDINGS: Tachycardic, mild bilateral crackles. Right lower leg is cold to touch. Tender. Has intact sensation. Intact movement. No palpable or dopplerable pulses. AIRWAY EVAL/ANESTHESIA PLAN: normal airway, ASA IV, Local Anesthesia, Risks, benefits & alternatives of sedation and/or procedure discussed and Patient agrees to continue as planned ADDITIONAL INFORMATION: Moderate sedation
[2024-10-28 21:02] LABS: Troponin 5 6HR Delta -57.5 ng/L (0-12)
--- NOTE | 2024-10-28 21:03 | XACV_ITS ---
Ht: 183 cm Wt: 73 kg BSA: 1.92 m2 Gender: Male : 1940 Exam Type: Invasive Peripheral Vascular Procedure(s): Procedure Description: Peripheral Cath Diagnostic Procedure Exam Priority: Routine Lower Extremity Diagnostic Findings INDICATION: 84-year-old with past medical history of peripheral artery disease and prior stent right lower extremity presented to hospital with worsening shortness of breath and volume overload. Also since 5 AM this morning he is experiencing severe right lower extremity pain below the knee. Pulses were not palpable or dopplerable. Arterial duplex was performed that showed occluded common femoral artery with very slight forward flow in the SFA and popliteal artery with no flow seen below the knee. Procedure detail:Pulse was not palpable it left common femoral artery. Using ultrasound guidance, was able to access distal common femoral artery with micropuncture needle. Sluggish blood return was seen. Hand-injection showed occluded mid common femoral artery. As we did not have any access to go to right lower extremity, procedure was aborted with plans to transfer him for vascular surgery evaluation and possible attempt at revascularization via radial access. We do not have equipment to perform radial intervention.. 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 Because of lack of access, we aborted the procedure with plans for transfer to tertiary care center with vascular surgery availability. They can attempt radial artery access and intervention. We do not have equipment to perform radial intervention. Recommendations Transfer for vascular surgery evaluation. Continue heparin gtt. Procedure Details Findings Pre-Procedure Time Out. Identified patient by full name and date of as verbalized by the patient/guarantor. Does the consent match the physician's order: Yes. Accurate & Complete Informed Consent: Yes. Inpatient/Outpatient History & Physical on Chart: Yes. If H&P is completed, is and addenduem needed: No. Visualize and Verify Site with Patient/Guarantor: N/A. Relevant Radiology Images available: Yes. Pre-op teaching completed and patient verbalized understanding. The risks, benefits, and alternatives of sedation and/or procedure were discussed by physician. The patient agrees to continue. Procedure started. Scaleman Indications: Critical lower limb ischemia. Correct patient, site and procedure confirmed by cath team. PERRLA. Strong, equal hand audio visual director bilaterally. Lungs clear x 5 lobes. Physician notified. Patient's son, Norberto Hall, stepped out of the hospital. Dr. Dumont will give himm an update via telephone if he isn't back at the completion of the procedure at . Equipment: 6F - Femoral. Cardiac Cath Pack. ACIST Manifold Kit Model BT 2000. Heparinized Saline (2 units/mL), 1000 mL bag. Kit, Micropuncture. Physician arrived. IV Site on Arrival: 18 gauge in the left bicep area. IV Fluids: 0.9% NaCl at KVO. 0 mL infused prior to laboratory assistant. Pre Procedural Pulses: right dorsalis pedis was Absent. Pre Procedural Pulses: right posterior tibial was Absent. Oxygen started at 2liters/min via nasal canula. bilateral groins was prepped with chloroprep then draped in the usual sterile fashion. Baseline sample Acquired. HR: 100 BPM. Patient arrived with a madrigal cath in place on arrival to the laboratory assistant. Draining clear, yellow UOP. Physician scrubbed in. Immediate Pre-Procedure Time Out. Correct Patient: Yes; Correct Procedure: Yes; Correct Site: Yes; Correct Patient Position: Yes; Correct Supplies: Yes; Dried Flammable Prep: Yes; Blood Products Available: N/A;. Lidocaine 1% infiltrated to the left groin. Arterial access obtained with micropuncture set. Unable to thread wire. Wire out and hand injection performed through the access needle. Left common femoral artery occluded. left radial was prepped with chloroprep then draped in the usual sterile fashion. left radial with no pulse. Dr. Alvarado scrubbed out. Post Procedure: Pulses reassessed and unchanged. PERRLA. Strong, equal hand audio visual director bilaterally. No VTE prophylaxis required. Medication's Wasted: Lidocaine 1% = 10 mL. Medication's Wasted: Heparin = 1000 units. Medication's Wasted: Other = Versed 1 mg. Medication's Wasted: Other = Fentanyl 75 mcg. Total IV fluids: 20 mL. Post-op diagnosis: Aborted peripheral angiogram. Complications: none. Estimated blood loss: 5mL-10mL. Responsiveness - Normal response to verbal stimuli; alert and oriented, PERRLA. Airway - Unaffected, no intervention required; spontaneous ventilation. Circulation: W/N/L, pulses unchanged. Nausea/Vomiting: No. Procedure completed. Procedure completed. Patient transferred by bed to ICU. Vital chart was stopped. Procedure Medications Start: 9:39 PM Stop: 9:39 PM Medication: Fentanyl Amount: 25 mcg Route: I.V. Start: 9:46 PM Stop: 9:46 PM Medication: Versed Amount: 1 mg Route: I.V. I, the attending physician, have reviewed and verified all procedure medications. Yes, all medications given per verbal order Report Signatures Finalized by Nadir Alvarado MD on 10/29/2024 08:32 AM
[2024-10-28 21:05] LABS: Troponin 5 6HR 180.5 ng/L (0-15)
[2024-10-28] MEDS: clopidogrel 75 mg Tablet PO (21:10)
[2024-10-28] MEDS: aspirin 81 mg EC Tablet PO (21:10)
[2024-10-28] MEDS: atorvastatin 40 mg Tablet 80 MG PO (21:12)
[2024-10-28] MEDS: carvedilol 12.5 mg Tablet PO (21:14)
[2024-10-28] MEDS: insulin lispro 100 unit/1 mL SUBCUT (21:17)
[2024-10-28 21:44] LABS: Reflex Lactate Order REFLEX LACTIC ORDERD
[2024-10-28 22:01] LABS: Chol HDL Ratio 3.97 mg/dL (1.0-5.00); Cholesterol 151 mg/dL (0-200); HDL Cholesterol 38 mg/dL (60-100); LDL Cholesterol Calculated 96 mg/dL (50-129); LDL HDL Ratio 2.53 RATIO (0.00-3.22); Triglycerides 84 mg/dL (0-150)
--- NOTE | 2024-10-28 22:08 | PM.PROC ---
Procedure Note: Date of procedure: 10/28/24 Pre-procedure diagnosis: Acute limb ischemia Post-procedure diagnosis: same Procedure: We attempted to access left common femoral artery under ultrasound guidance however it was occluded 100% in the mid segment. No access for us to attempt revascularization of right lower extremity as we do not have appropriate equipment to go from radial artery to lower extremity intervention. Transfer to center with vascular surgery availability for attempt at revascularization from radial access. Resume heparin gtt. Performing Provider: Nadir Alvarado Complications: None Condition: critical Disposition: ICU Coding Level of Care Code Acute Code for Emelia Rollins
[2024-10-28 22:50] LABS: Lactic Acid level (Lactate) 2.7 mmol/L (0.5-2.2)
[2024-10-28 22:56] LABS: Partial Thromboplastin Time 113.9 SECONDS (23.9-36.7)
--- NOTE | 2024-10-28 23:09 | P.TS_ITS ---
Transfer Summary Providers Date of Admission: 10/28/24 16:15 Date of Discharge/Transfer: 10/28/24 Attending Provider at Admission: Barrera Horta MD Attending Provider at Transfer: Barrera Horta MD Transfer Plans: Anticipated date of transfer: 10/28/24 . Diagnoses at Discharge Discharge Diagnosis (1) NSTEMI (non-ST elevated myocardial infarction): Status: Acute (2) Congestive heart failure: Status: Acute Qualifiers: Heart failure chronicity: unspecified Heart failure type: unspecified Qualified Code(s): I50.9 - Heart failure, unspecified (3) Dyslipidemia: Status: Acute (4) Type 2 diabetes mellitus: Status: Acute Qualifiers: Diabetes mellitus complication detail: with peripheral angiopathy without gangrene Diabetes mellitus complication status: with circulatory complication Diabetes mellitus termite exterminator insulin use: without longterm use Qualified Code(s): E11.51 - Type 2 diabetes mellitus with diabetic peripheral angiopathy without gangrene (5) Acute lower limb ischemia: Status: Acute (6) Chronic kidney disease (CKD): Status: Chronic Qualifiers: Chronic kidney disease stage: stage 3 (moderate) Chronic kidney disease stage 3 subtype: stage 3a (GFR 45-59) Qualified Code(s): N18.31 - Chronic kidney disease, stage 3a (7) Lung mass: Status: Acute (8) Presence of permanent cardiac pacemaker: Status: Acute (9) Leukocytosis: Status: Acute Qualifiers: Leukocytosis type: unspecified Qualified Code(s): D72.829 - Elevated white blood cell count, unspecified (10) COPD exacerbation: Status: Acute Reason for Visit Reason for Visit sob Hospital Course Hospital Course Patient is not able to provide much history this information has been taken from the cardiology notes today Manager Mac was asked by the nuclear weapons specialist to request transfer for vascular intervention Norberto Atkins is a 84 year old male, he is admitted to hospital through the emergency room where he presented with complaints of progressive shortness of breath and weakness. He was found to elevated troponin T. Cardiology consult is requested for further cardiac evaluation recommendations. This patient extremely poor historian. He is hard of hearing and also is very forgetful. Information is mostly from his son and from the medical staff. According to son, he was having shortness of breath since . His family members called an ambulance on because of shortness of breath. But the patient refused to come to the hospital. His symptoms started getting worse. He apparently lives alone and was finding it difficult to ambulate. He was found to be extremely weak and tired. For these reasons, he was brought to the hospital emergency room. He has been having a cough. Also possible low- grade fever. He was found to elevated white cell count in the emergency room. On further questioning, he also is complaining of chest pain off and on. He is not able to tell exactly how long he been having chest pain. According to him, he has pain in the upper substernal area intermittently. No chest pain at this point. He has no previous history for coronary disease, myocardial infarction or congestive heart failure. He had a permanent pacer implantation in [place], [place] many years ago. Details are not available. He also was told to have a valve problem and is being treated medically, as per his son. He has a history of peripheral artery disease. According to his son, he had a stent placed in his right? Iliac region 30 years ago. Patient is a heavy smoker. He smokes at least a pack a day for the last 70 years or so. He is noted to have COPD. No alcohol abuse or any other substance abuse. magnetic prospecting supervisor was consulted on stat basis to take patient to the Credit Balance Specialist for acute limb ischemia with occluded stent in popliteal artery of right leg, attempt was made to access through left common femoral however it does have complete occlusion as well hence procedure was aborted. Recommendation was made to transfer patient for open vascular intervention, I have reached out to [facility]. Spoke with Dr. Orosco who recommended speaking with manager financial systems. Patient is on heparin drip, he does have significant leukocytosis of 23,000, lactic acid 4.0 after fluid resuscitation came down to 2.7, troponin 238 baseline, 120-hour troponin 180, 6-hour troponin 180 BNP 37,000, creatinine 1.6 Sorting Machine Operator attempted to access left common femoral artery under ultrasound guidance however it was occluded 100% in the mid segment. No access for us to attempt revascularization of right lower extremity as we do not have appropriate equipment to go from radial artery to lower extremity intervention. Transfer to center with vascular surgery availability for attempt at revascularization from radial access. Resume heparin gtt. lmited echo study alert Severe diffuse hypokinesia left ventricular ejection fraction of around 17%. Moderately dilated LV cavity. Left atrium appears to be mildly dilated Thickened mitral valve. Mild mitral annular calcification. Thickened aortic valve with restricted mobility. There is no pericardial effusion. Technically difficult study because of poor apical window No similar previous studies are available for comparison CTA CHEST #: [id number] CT/CT angio chest PE protcl [id number] IMPRESSION: 1. Congestive heart failure with small pleural effusions 2. 1.8 cm right apical lung nodule suspicious for neoplasm. Further workup with PET-CT is recommended.For both low risk and high risk patients, consider CT Chest at 3 months, PET/CT, or biopsy. (Reference: Neetu) duplex study RIGHT LEFT Waveform Velocity (cm/s) Velocity (cm/s) Waveform Monophasic 6.0 Iliac Prox Monophasic 10.0 Iliac Mid Monophasic 13.0 Iliac Distal N/A 4.0 SFA Prox Monophasic 7.0 SFA Dist FINDINGS Sluggish flow is noted on the right iliac artery. Some trickling of flow was noted in the distal SFA. The there is a long stented segment of the popliteal artery. Some trickling of flow was noted in the distal segment distal segment area. No flow was detected in the posterior tibial and dorsalis pedis arteries. 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 No flow was detected in the posterior tibial or dorsalis pedis arteries. No similar previous studies are available for comparison Venous study [place] [id number] IMPRESSION: No evidence of deep vein thrombosis. TS Data Studies Completed and Pending Pending at discharge Category Date Time Status ANTIQUE AUTOMOBILES REPAIRER request for service Routine Exams 10/28/24 21:03 Ordered Blood Culture Stat Lab 10/28/24 13:16 Results Complete Blood Count w/Auto AM LABS Lab 10/29/24 04:00 Ordered Complete Blood Count w/Auto AM LABS Lab 10/30/24 04:00 Ordered Complete Blood Count w/Auto AM LABS Lab 10/31/24 04:00 Ordered Comprehensive Metabolic Panel AM LABS Lab 10/29/24 04:00 Ordered Comprehensive Metabolic Panel AM LABS Lab 10/30/24 04:00 Ordered Comprehensive Metabolic Panel AM LABS Lab 10/31/24 04:00 Ordered Magnesium AM LABS Lab 10/29/24 04:00 Ordered Magnesium AM LABS Lab 10/30/24 04:00 Ordered Magnesium AM LABS Lab 10/31/24 04:00 Ordered Phosphorus AM LABS Lab 10/29/24 04:00 Ordered Phosphorus AM LABS Lab 10/30/24 04:00 Ordered Phosphorus AM LABS Lab 10/31/24 04:00 Ordered Platelet Count Q2D Lab 10/30/24 04:00 Ordered Platelet Count Q2D Lab 11/01/24 04:00 Ordered Sputum Culture and Gram Stain Stat Lab 10/28/24 17:08 Uncollected Completed Studies During Hospitalization Category Date Time Status CTA chest [CT angio chest PE protcl [id number]] Stat Cat Scan 10/28/24 14:05 Completed XR chest 1V portable [id number] Stat Exams 10/28/24 12:56 Completed CV. echo limited [id number] Routine Ultrasound 10/28/24 17:20 Completed US arterial duplex lower extremity RT [CV arterial Ultrasound 10/28/24 19:15 [place] [id number]] Routine US venous duplex lower extremity RT [CV venous duplex Ultrasound 10/28/24 14:05 [place] [id number]] Stat Laboratory Last Values WBC 23.40 10^3/uL (3.29-11.43) H 10/28/24 13:16 RBC 4.97 10^6/uL (3.85-5.65) 10/28/24 13:16 Hgb 15.60 g/dL (11.27-16.99) 10/28/24 13:16 Hct 46.9 % (37-53) 10/28/24 13:16 MCV 94.4 fl (82-101) 10/28/24 13:16 MCH 31.4 pg (27-33) 10/28/24 13:16 MCHC 33.3 g/dL (30-55) 10/28/24 13:16 RDW 14.4 % (12.1-15.1) 10/28/24 13:16 Plt Count 321 10^3/cmm (157-399) 10/28/24 13:16 MPV 9.3 fL (7.4-10.4) 10/28/24 13:16 Neut % (Auto) 92.1 % 10/28/24 13:16 Lymph % (Auto) 2.4 % 10/28/24 13:16 Davidson % (Auto) 4.5 % 10/28/24 13:16 Eos % (Auto) 0.1 % 10/28/24 13:16 Baso % (Auto) 0.1 % 10/28/24 13:16 Neut # (Auto) 21.53 10^3/uL (1.8-7.7) H 10/28/24 13:16 Lymph # (Auto) 0.6 10^3/uL (0.8-4.8) L 10/28/24 13:16 Davidson # (Auto) 1.1 10^3/uL (0.2-0.9) H 10/28/24 13:16 Eos # (Auto) 0.0 10^3/uL (0.0-0.8) 10/28/24 13:16 Baso # (Auto) 0.0 10^3/uL (0.0-0.1) 10/28/24 13:16 Nucleated RBC % (auto) 0 % 10/28/24 13:16 Nucleated RBCs # 0.0 /100WBC 10/28/24 13:16 APTT 113.9 SECONDS (23.9-36.7) H 10/28/24 22:23 Specimen Type Arterial 10/28/24 13:15 Sample Site Radial, left 10/28/24 13:15 ABG pH 7.34 (7.35-7.45) L 10/28/24 13:15 ABG pCO2 33.6 mmHg (35-45) L 10/28/24 13:15 ABG pO2 68.4 mmHg (80.0-100.0) L 10/28/24 13:15 ABG HCO3 18.0 mmol/L (22-26) L 10/28/24 13:15 ABG Base Excess -6.9 mmol/L (-2.0-2.0) L 10/28/24 13:15 Sea Test Pos 10/28/24 13:15 Hematocrit 45.1 % (42-52) 10/28/24 13:15 Hgb O2 Saturation 92.4 % (95-100) L 10/28/24 13:15 Carboxyhemoglobin 1.8 %THgb (0.4-20.1) 10/28/24 13:15 Methemoglobin < 0.0 % (0.4-1.5) L 10/28/24 13:15 Total Hemoglobin 14.7 g/dL (14-18) 10/28/24 13:15 O2 Delivery Device Nc 10/28/24 13:15 O2 Liters/Min 3.0 % 10/28/24 13:15 Chief Cardiopulmonary Technologist ID Walci 10/28/24 13:15 Sodium 134 mmol/L (136-145) L 10/28/24 13:16 Potassium 4.7 mmol/L (3.5-5.1) 10/28/24 13:16 Chloride 87 mmol/L (98-107) L 10/28/24 13:16 Carbon Dioxide 20 mmol/L (22-29) L 10/28/24 13:16 Anion Gap 31.7 (5-19) H 10/28/24 13:16 BUN 33 mg/dL (8-23) H 10/28/24 13:16 Creatinine 1.6 mg/dL (0.7-1.2) H 10/28/24 13:16 GFR Calculation Not Reportable 10/28/24 13:16 Glucose 174 mg/dL (65-115) H 10/28/24 13:16 POC Glucose 156 mg/dL (70-110) H 10/28/24 20:51 Estimat Average Glucose 120 10/28/24 13:16 Hemoglobin A1c 5.8 % (4.0-6.0) 10/28/24 13:16 Calculated Osmolality 289 mOsm/kg (285-295) 10/28/24 13:16 Lactic Acid 4.0 mmol/L (0.5-2.2) H 10/28/24 19:53 Lactic Acid (Sepsis) 2.7 mmol/L (0.5-2.2) H 10/28/24 22:23 Calcium 9.4 mg/dL (8.5-10.5) 10/28/24 13:16 Troponin T Baseline 238 ng/L (0-15) H* 10/28/24 13:16 Troponin T 120 Minute 180.3 ng/L (0-15) H 10/28/24 15:22 Delta Troponin T -57.7 ABS# (0-10) L 10/28/24 15:22 Troponin T Hi Sens 6Hr 180.5 ng/L (0-15) H 10/28/24 19:53 Troponin T Hi Sens 6Hr Delta -57.5 ng/L (0-12) L 10/28/24 19:53 C-Reactive Protein 37.7 mg/L (0.0-4.9) H 10/28/24 13:16 NT-Pro-B Natriuret Pep 86456 pg/mL (0-450) H 10/28/24 13:16 NT-Pro-B Natriuret Pep 72450 pg/mL (0-450) H 10/28/24 13:16 Triglycerides 84 mg/dL (0-150) 10/28/24 19:53 Cholesterol 151 mg/dL (0-200) 10/28/24 19:53 LDL Cholesterol, Calc 96 mg/dL (50-129) 10/28/24 19:53 HDL Cholesterol 38 mg/dL (60-100) L 10/28/24 19:53 LDL/HDL Ratio 2.53 RATIO (0.00-3.22) 10/28/24 19:53 Cholesterol/HDL Ratio 3.97 mg/dL (1.0-5.00) 10/28/24 19:53 Lipase 73 U/L (13-60) H 10/28/24 13:16 Procalcitonin 21.48 ng/mL (0-0.5) H 10/28/24 13:16 TSH 1.90 uIU/mL (0.27-4.20) 10/28/24 19:53 Digoxin 0.3 ng/mL (0.6-1.2) L 10/28/24 13:16 Serum Ketones Negative (Negative) 10/28/24 13:16 Coronavirus (PCR) Negative (Negative) 10/28/24 13:18 Influenza A (PCR) Negative (Negative) 10/28/24 13:18 Influenza Type B (PCR) Negative (Negative) 10/28/24 13:18 RSV (PCR) Negative (Negative) 10/28/24 13:18 Radiology Impressions Chest X-Ray 10/28/24 12:56 IMPRESSION: Hazy interstitial lung disease bilaterally. I am uncertain as to whether this represents chronic interstitial coarsening versus acute interstitial pneumonia Chest CTA 10/28/24 14:05 IMPRESSION: 1. Congestive heart failure with small pleural effusions 2. 1.8 cm right apical lung nodule suspicious for neoplasm. Further workup with PET-CT is recommended.For both low risk and high risk patients, consider CT Chest at 3 months, PET/CT, or biopsy. (Reference: Neetu) REFERENCES: Neetu Townsend et al. Guidelines for Management of Incidental Pulmonary Nodules Detected on CT Images: From the Fleischner Society 2017. Radiology. 2017;284(1):228-243. Venous Duplex 10/28/24 14:05 IMPRESSION: No evidence of deep vein thrombosis. Recent Clincial Data Last Vital Signs Temp 98.1 F 10/28/24 12:41 Pulse 114 H 10/28/24 20:00 Resp 28 H 10/28/24 20:00 BP 100/43 10/28/24 19:02 Pulse Ox 94 10/28/24 20:05 O2 Del Method Nasal Cannula 10/28/24 21:13 O2 Flow Rate 4 10/28/24 21:13 Vital Signs Temp Pulse Resp BP Pulse Ox O2 Del Method O2 Flow Rate 10/28/24 21:13 Nasal Cannula 4 10/28/24 20:05 94 10/28/24 20:00 114 H 28 H 91 10/28/24 19:59 115 H 25 H 91 4 10/28/24 19:30 110 H 96 Nasal Cannula 4 10/28/24 19:02 111 H 29 H 100/43 97 10/28/24 18:30 112 H 23 H 103/60 97 10/28/24 18:00 106 H 20 H 135/63 95 10/28/24 17:30 116 H 25 H 140/96 93 10/28/24 17:00 121 H 26 H 93 10/28/24 16:30 107 H 21 H 126/84 90 10/28/24 16:00 110 H 18 143/67 90 10/28/24 15:30 107 H 24 H 139/64 92 10/28/24 15:00 109 H 20 H 139/71 96 10/28/24 14:38 109 H 145/80 94 10/28/24 14:08 97 16 139/69 94 10/28/24 13:38 105 H 25 H 130/64 96 10/28/24 12:41 98.1 F 105 H 26 H 128/100 94 Nasal Cannula 3 Intake & Output/Weight 01/03/10/27/24 10/28/24 10/29/24 06:59 06:59 06:59 06:59 Intake Total 0 / 0 Balance 0 / 0 Weight 72.575 kg Vitals Last Vital Signs Temp 98.1 F 10/28/24 12:41 Pulse 114 H 10/28/24 20:00 Resp 28 H 10/28/24 20:00 BP 100/43 10/28/24 19:02 Pulse Ox 94 10/28/24 20:05 O2 Del Method Nasal Cannula 10/28/24 21:13 O2 Flow Rate 4 10/28/24 21:13 TS Medications Medications Acetaminophen (Acetaminophen 325 Mg Tablet) 650 mg PO Q6H PRN PRN Reason: Mild/Mod Pain Or Temp >/= 101 Albuterol/Ipratropium (Ipratropium-Albuterol 3 Ml Neb) 3 ml INHALATION Q4H.RESPIRATORY [facility] Last Admin: 10/28/24 21:16 Dose: Not Given Aspirin (Aspirin 81 Mg Ec Tablet) 81 mg PO DAILY CH[facility]STOFER Last Admin: 10/28/24 21:10 Dose: 81 mg Atorvastatin Calcium (Atorvastatin 40 Mg Tablet) 80 mg PO DAILY@1200 CH[facility]STOFER Last Admin: 10/28/24 21:12 Dose: 80 mg Budesonide (Budesonide 0.5 Mg/2 Ml Neb) 0.5 mg INHALATION BID.RESPIRATORY [facility] Last Admin: 10/28/24 21:16 Dose: Not Given Carvedilol (Carvedilol 12.5 Mg Tablet) 12.5 mg PO BID [facility] Last Admin: 10/28/24 21:14 Dose: 12.5 mg Ceftriaxone Sodium (Ceftriaxone 1,000 Mg Sdv) 1,000 mg IVP Q24H [facility]RISTOFER; Protocol Last Admin: 10/28/24 17:56 Dose: 1,000 mg Clopidogrel Bisulfate (Clopidogrel 75 Mg Tablet) 75 mg PO QAM [facility] Last Admin: 10/28/24 21:10 Dose: 75 mg Ezetimibe (Ezetimibe 10 Mg Tablet) 10 mg PO QAM [facility] Furosemide (Furosemide 10 Mg/Ml Sdv 4ml) 40 mg IVP Q12H [facility] Gabapentin (Gabapentin 400 Mg Capsule) 800 mg PO QID [facility] Glucagon (Glucagon 1 Mg/Ml Kit 1 Ml) 1 mg IM ONCE PRN; Protocol PRN Reason: Adult Acute Hypoglycemia Nursing Prot. Heparin Sodium (Porcine) (Heparin 5,000 Unit/Ml Inj 1 Ml) 0 unit IVP PRN PRN; Protocol PRN Reason: Heparin Weight Based Protocol -Subsequent Bolus Heparin Sodium/Sodium Chloride (Heparin Drip) 25,000 unit in 500 mls @ 0 mls/hr IV CONT CHRISTOFER; Protocol Last Admin: 10/28/24 15:31 Dose: 14.47 unit/kg/hr, 21 mls/hr Azithromycin 500 mg/ Sodium (Chloride) 250 mls @ 250 mls/hr IV Q24H [facility]STOFER; Protocol Last Admin: 10/28/24 17:57 Dose: 250 mls/hr Dextrose (D5w) 500 mls @ 0 mls/hr IV ONCE PRN; Protocol PRN Reason: Adult Acute Hypoglycemia Prot Dextrose (D10w) 125 mls @ 750 mls/hr IV PRN PRN; Protocol PRN Reason: Adult Acute Hypoglycemia Nursing Protocol Dextrose (D10w) 250 mls @ 1,000 mls/hr IV PRN PRN; Protocol PRN Reason: Adult Acute Hypoglycemia Nursing Protocol Insulin Human Lispro (Insulin Lispro 100 Unit/1 Ml) 0 unit SUBCUT TIDWM CHRISTOFER; Protocol Last Admin: 10/28/24 21:17 Dose: 2 unit Methylprednisolone Sodium Succinate (Methylprednisolone Sod Succ 40 Mg/Ml Inj) 40 mg IVP Q8H [facility]ST[facility] Morphine Sulfate (Morphine 4 Mg/Ml Sdv 1 Ml) 2 mg IVP Q4H PRN PRN Reason: SEVERE PAIN Naloxone HCl (Naloxone 0.4 Mg/Ml Sdv) 0.1 mg IVP Q2M PRN PRN Reason: OPIATERV Ondansetron HCl (Ondansetron 2 Mg/Ml Sdv 2 Ml) 4 mg IVP Q8H PRN PRN Reason: vomiting, or N/V if npo Pantoprazole Sodium (Pantoprazole 40 Mg Sdv) 40 mg IVP Q24H [facility] Discontinued Medications Fentanyl (Fentanyl 50 Mcg/Ml Inj 2ml) Confirm Administered Dose 100 mcg .ROUTE .STK-MED ONE Stop: 10/28/24 20:59 Furosemide (Furosemide 10 Mg/Ml Sdv 4ml) 40 mg IVP ONCE ONE Stop: 10/28/24 15:41 Last Admin: 10/28/24 17:54 Dose: 40 mg Furosemide (Furosemide 10 Mg/Ml Sdv 4ml) 40 mg IVP ONCE ONE Stop: 10/28/24 18:01 Heparin Sodium (Porcine) (Heparin 5,000 Unit/Ml Inj 1 Ml) 0 unit IVP ONCE ONE; Protocol Stop: 10/28/24 13:58 Last Admin: 10/28/24 15:18 Dose: 3,700 unit Heparin Sodium (Porcine) (Heparin 5,000 Unit/Ml Inj 1 Ml) Confirm Administered Dose 10,000 unit .ROUTE .ST-MED ONE Stop: 10/28/24 20:59 Lidocaine HCl (Xylocaine) Confirm Administered Dose 20 mls @ as directed .ROUTE .ST-MED ONE Stop: 10/28/24 20:59 Sodium Chloride (Sodium Chloride 0.9%) Confirm Administered Dose 1,000 mls @ as directed .ROUTE .[facility]-MED ONE Stop: 10/28/24 21:37 Iohexol (Iohexol 350 Mg/Ml 500 Ml Btl (Per Ml)) 0 ml IV ONCE ONE Stop: 10/28/24 14:48 Last Admin: 10/28/24 14:48 Dose: 72 ml Methylprednisolone Sodium Succinate (Methylprednisolone Sod Succ 125 Mg/2 Ml Inj) 125 mg IVP ONCE ONE Stop: 10/28/24 17:58 Metolazone (Metolazone 5 Mg Tablet) 5 mg PO ONCE ONE Stop: 10/28/24 17:11 Last Admin: 10/28/24 18:03 Dose: 5 mg Midazolam HCl (Midazolam 1 Mg/Ml Inj 2 Ml) Confirm Administered Dose 2 mg .ROUTE .[facility]-MED ONE Stop: 10/28/24 20:59 Potassium Chloride (Potassium Chloride Er 20 Meq Tablet) 20 meq PO ONCE ONE Stop: 10/28/24 17:11 Last Admin: 10/28/24 18:03 Dose: 20 meq Allergies No Known Allergies Allergy (Verified 10/28/24 12:40) Home Medications atorvastatin 80 mg tablet 80 mg PO .NOON 10/28/24 [History Confirmed 10/28/24] carvedilol 12.5 mg tablet 12.5 mg PO BID 10/28/24 [History Confirmed 10/28/24] clopidogrel 75 mg tablet 75 mg PO QAM 10/28/24 [History Confirmed 10/28/24] digoxin 125 mcg (0.125 mg) tablet 125 mcg PO QPM 10/28/24 [History Confirmed 10/28/24] ezetimibe 10 mg tablet 10 mg PO QAM 10/28/24 [History Confirmed 10/28/24] gabapentin 800 mg tablet 800 mg PO QID 10/28/24 [History Confirmed 10/28/24] lisinopril 2.5 mg tablet 2.5 mg PO QAM 10/28/24 [History Confirmed 10/28/24] metformin 1,000 mg tablet 1,000 mg PO BID 10/28/24 [History Confirmed 10/28/24] tramadol 50 mg tablet 100 mg PO QID PRN Pain 10/28/24 [History Confirmed 10/28/24] Discharge Plan Discharge Patient Disposition: Xfer Other Condition: Stable Prescriptions: No Action atorvastatin 80 mg Tablet 80 mg PO .NOON carvedilol 12.5 mg Tablet 12.5 mg PO BID Rx Instructions: must administer with a meal/food clopidogrel 75 mg Tablet 75 mg PO QAM tramadol 50 mg Tablet 100 mg PO QID PRN (Reason: Pain) gabapentin 800 mg Tablet 800 mg PO QID metformin 1,000 mg Tablet 1,000 mg PO BID digoxin 125 mcg (0.125 mg) Tablet 125 mcg PO QPM lisinopril 2.5 mg Tablet 2.5 mg PO QAM ezetimibe 10 mg Tablet 10 mg PO QAM Patient Instructions: Opioid Safety Transfer Attestations Time Spent in Transfer Care: greater than 30 min Quality Metrics Clinical Quality Measures [ No reported AMI, CVA or VTE this stay] Coding Level of Care Code Acute Code for [facility] Diagnoses NSTEMI (non-ST elevated myocardial infarction) I21.4 Congestive heart failure, unspecified HF chronicity, unspecified heart failure type I50.9 Heart failure chronicity: unspecified Heart failure type: unspecified Dyslipidemia E78.5 Type 2 diabetes mellitus with diabetic peripheral angiopathy without gangrene, without long-term current use of insulin E11.51 Diabetes mellitus complication detail: with peripheral angiopathy without gangrene Diabetes mellitus complication status: with circulatory complication Diabetes mellitus longterm insulin use: without termite exterminator use Acute lower limb ischemia I99.8 Stage 3a chronic kidney disease N18.31 Chronic kidney disease stage: stage 3 (moderate) Chronic kidney disease stage 3 subtype: stage 3a (GFR 45-59) Lung mass R91.8 Presence of permanent cardiac pacemaker Z95.0 Leukocytosis, unspecified type D72.829 Leukocytosis type: unspecified COPD exacerbation J44.1
[2024-10-28] MEDS: morphine 4 mg/mL SDV 1 mL 2 MG IVP (23:12)
--- NOTE | 2024-10-28 23:18 | PC.NURSE ---
Spoke with Dr. Winkler in reference to patient's medications currently past-due, and lasix and solumedrol possibly not being given as they were due before patient was on the unit. Received orders to hold them for now.
[2024-10-29] VITALS (28 sets, daily range): BP systolic 86–120; BP diastolic 40–67; PULSE 75–103; RESP 12–24; TEMP 36.8–37; O2SAT 70–98
[2024-10-29] MEDS: ipratropium-albuterol 3 mL Neb INHALATION ×3 (00:28→09:10)
--- NOTE | 2024-10-29 00:30 | PC.NURSE ---
Report called to Norma Malcolm RN, with [facility] neurotrauma ICU in [place].
[2024-10-29] MEDS: morphine 4 mg/mL SDV 1 mL 2 MG IVP (03:28)
--- NOTE | 2024-10-29 04:25 | PC.NURSE ---
Contacted Dr. Winkler in reference to Furosemide and Ezetimibe due to orders to previously hold medications except heparin until time of transfer. Received orders to continue to hold these medications.
[2024-10-29 05:55] LABS: Basophils % 0.1 %; Hematocrit 38.6 % (37-53); Lymphocytes # 1.2 10^3/uL (0.8-4.8); Mean Corpuscular HGB Conc 34.2 g/dL (30-55); Mean Corpuscular Hemoglobin 31.4 pg (27-33); Mean Corpuscular Volume 91.7 fl (82-101); Mean Platelet Volume 9.5 fL (7.4-10.4); Monocytes # 1.2 10^3/uL (0.2-0.9); Monocytes % 6.1 %; Neutrophils # 17.25 10^3/uL (1.8-7.7); Neutrophils % 87.2 %; Nucleated Red Blood Cells % 0 %; Platelet Count 267 10^3/cmm (157-399); Red Blood Count 4.21 10^6/uL (3.85-5.65); Red Cell Distribution Width 14.4 % (12.1-15.1); White Blood Count 19.78 10^3/uL (3.29-11.43)
[2024-10-29 06:16] LABS: Alanine Aminotransferase 23 U/L (0-41); Albumin Level 3.5 g/dL (3.5-5.2); Alkaline Phosphatase 90 U/L (40-130); Anion Gap 17.3 (5-19); Aspartate Amino Transferase 61 U/L (0-40); Blood Urea Nitrogen 45 mg/dL (8-23); Calcium 9.2 mg/dL (8.5-10.5); Carbon Dioxide 21 mmol/L (22-29); Chloride 99 mmol/L (98-107); Creatinine Clr Calc Pharmacy 35.5778; Globulin 3.4 g/dL (1.3-4.6); Glucose 111 mg/dL (65-115); Osmolality Calculated 286 mOsm/kg (285-295); Phosphorus 4.7 mg/dL (2.5-4.5); Potassium 5.3 mmol/L (3.5-5.1); Sodium 132 mmol/L (136-145); Total Bilirubin 0.4 mg/dL (0.15-1.2); Total Protein 6.9 g/dL (6.6-8.7)
[2024-10-29 06:19] LABS: Partial Thromboplastin Time 148.3 SECONDS (23.9-36.7)
--- NOTE | 2024-10-29 08:55 | PC.SOCIAL ---
Patient has transfer orders to [facility] in [place] at this time
[2024-10-29] MEDS: budesonide 0.5 mg/2 mL Neb INHALATION (09:10)
--- NOTE | 2024-10-29 16:08 | P.PN_ITS ---
Subjective 2 Subjective: - Patient was seen this morning -Events overnight -Found to have acute limb ischemia await ing urgent transfer -Transfer was initiated 11pm, [facility] w as not transferring due to the weather, ground transport has been delayed -He is alert oriented x 3, following all commands, still agreeable to transfer and he tells me that Doc, apologized to patient, discussed issues with [facility], ground transport given the weather will do my best to get him out of here EZEQUIEL -Confirmed with nursing staff and Air-[facility] to area that is still not flying -Fixed wing could fly, but ground transp ort has been delayed -Throughout the morning check back with nursing staff multiple times and ground transport, advised that they would come at 9 AM, it is 945 and they are still not here -Spoke to son at bedside, and working ur gently to get him to tertiary level center, for urgent evaluation for his acute limb ischemia discussed his EF down to 17%, likely patient had an acute cardiac event in the last few days when he was complaining of chest pain, his creatinine is 1.4 he has put a good amount of urine output, remains on heparin drip, IV antibiotics discussed overall goals of care continues to have want everything to be done, patient continues to want everything to be done -Patient examined alert oriented x 3, re sting comfortably again, resting comfortably on 3 L normotensive,Awaiting transfer to [facility], ground transfer is not here as of yet -10:34am ground transfer is here to pick patient up for transfer Vitals/I&O/Wt Last Vital Signs Temp 98.6 F 10/29/24 08:00 Pulse 86 10/29/24 10:00 Resp 18 10/29/24 10:00 BP 117/64 10/29/24 10:00 Pulse Ox 94 10/29/24 10:00 O2 Del Method Nasal Cannula 10/29/24 09:10 O2 Flow Rate 3 10/29/24 09:10 10/29/24 10/29/24 10/29/24 06:59 14:59 22:59 Intake Total 284.55 / 284.55 Balance 284.55 / 284.55 Weight last 48 hrs Weight 57.5 kg Weight 57.5 kg Weight 72.575 kg Physical Exam 2 Const: COMMON NORMALS: no acute distress and patient oriented x3 Resp: COMMON NORMALS: normal respiratory effort, No retractions and No use of accessory muscles AUSCULTATION: crackles and wheezes Cardio: COMMON NORMALS: regular rate, regular rhythm, S1 normal heart sound present and S2 normal heart sound present RATE: regular rate RHYTHM: r egular rhythm HEART SOUNDS: S1 normal heart sound present and S2 normal heart sound present GI: COMMON NORMALS: Normal to inspection, nondistended, normoactive bowel sounds present and non-tender Extremity: COMMON NORMALS: no pedal edema OTHER: Right lower extremity, pulseless, cool, does not report any loss of sensation, can still move the right foot, toes of pallor, bluish hue Neuro: COMMON NORMALS: patient oriented x3 Psych: COMMON NORMALS: mental status grossly normal Urinary Catheter Management: Pantoja: Cath Placed During This Visit: yes Reason for Continuing Indwelling Catheter: Accurate Measurement of Urinary Output in Critically Ill Patients Urinary Catheter Date of Insertion: 10/28/24 Urinary Catheter Time of Insertion: 20:20 Data 10/29/24 05:27 10/29/24 05:27 Micro: Microbiology 10/28/24 13:16 Blood Culture - Preliminary Blood SPECIMEN COLLECTED 10/28/24 13:12 Blood Culture - Preliminary Blood SPECIMEN COLLECTED A&P Assessment and plan (1) NSTEMI (non-ST elevated myocardial infarction): (2) Systolic CHF, acute: (3) Acute hypoxic respiratory failure: (4) Type 2 diabetes mellitus: Qualifiers: Diabetes mellitus termite treater insulin use: without termite treater use Diabetes mellitus complication status: with circulatory complication Diabetes mellitus complication detail: with peripheral angiopathy without gangrene Qualified Code(s): E11.51 - Type 2 diabetes mellitus with diabetic peripheral angiopathy without gangrene (5) Increased anion gap metabolic acidosis: (6) Acute kidney injury: (7) Leukocytosis: Qualifiers: Leukocytosis type: unspecified Qualified Code(s): D72.829 - Elevated white blood cell count, unspecified (8) Right upper lobe pulmonary nodule: (9) COPD exacerbation: (10) Acute lower limb ischemia: Plan Acute right limb ischemia CONCLUSIONS 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 No flow was detected in the posterior tibial or dorsalis pedis arteries. 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 Because of lack of access, we aborted the procedure with plans for transfer to tertiary care center with vascular surgery availability. They can attempt radial artery access and intervention. We do not have equipment to perform radial intervention. Recommendations Transfer for vascular surgery evaluation. Continue heparin gtt. PLAN: -heparin drip -transferring to [facility] in [place] for vascular intervention Acute hypoxic respiratory failure -Multifactorial -Acute systolic CHF exacerbation -COPD exacerbation -Plan -Monitor respiratory status closely -Lasix 40 mg IV twice daily, 1 dose metolazone -Monitor urine output, monitor creatinine -Cardiac echocardiogram -Solu-Medrol 125 followed by 40 mg IV every 8 hours -DuoNeb -Budesonide -Follow-up blood cultures -Sputum culture -Full code -Heparin drip for DVT prophylaxis Leukocytosis -Follow-up Pro-Yong, CRP -Follow blood cultures -Follow sputum culture -Follow UA -Start Rocephin, Zithromycin for concerns for respiratory tract infection given complaints of cough Systolic CHF -Cardiac echocardiogram ordered -Monitor respiratory status closely NSTEMI -Given complaints of chest pain, highly concerned for type I -Heparin drip -Aspirin, statin, Plavix, Coreg -Cardiac echo CONCLUSIONS Limited 2D echo, Severe diffuse hypokinesia left ventricular ejection fraction of around 17%. Moderately dilated LV cavity. Left atrium appears to be mildly dilated Thickened mitral valve. Mild mitral annular calcification. Thickened aortic valve with restricted mobility. There is no pericardial effusion. Technically difficult study because of poor apical window No similar previous studies are available for comparison -Cardiology consulted -Diurese as above COPD exacerbation -As above Type 2 diabetes mellitus, low-dose sliding scale Right upper lobe, apical lung mass 1.8 cm right apical lung nodule suspicious for neoplasm. Further workup with PET-CT is recommended.For both low risk and high risk patients, consider CT Chest at 3 months, PET/CT, or biopsy. (Reference: Neetu) -Follow-up with pulmonary as outpatient Attestations 2 Medical Necessity Statement*: patient being transferred to [facility] for acute limb ischemia Coding Level of Care Code Critical Care >/= 30 minutes Critical care time (in minutes): 45 The high probability of a clinically significant, sudden or life threatening deterioration, as referenced in this documentation, required my full and direct attention, intervention and personal management. The critical care time shown is in addition to time spent performing any reported separately billable procedures and includes the following: [x] Data and vital sign review and interpretation [x ] Patient assessment, examination and intervention [x] Medication orders and management [x] Patient/Family updates as able [x] Care Coordination and Documentation. Diagnoses NSTEMI (non-ST elevated myocardial infarction) I21.4 Systolic CHF, acute I50.21 Acute hypoxic respiratory failure J96.01 Type 2 diabetes mellitus with diabetic peripheral angiopathy without gangrene, without long-term current use of insulin E11.51 Diabetes mellitus termite treater insulin use: without intermediate use Diabetes mellitus complication status: with circulatory complication Diabetes mellitus complication detail: with peripheral angiopathy without gangrene Increased anion gap metabolic acidosis E87.29 Acute kidney injury N17.9 Leukocytosis, unspecified type D72.829 Leukocytosis type: unspecified Right upper lobe pulmonary nodule R91.1 COPD exacerbation J44.1 Acute lower limb ischemia I99.8
[2024-10-30 11:45] LABS: Glucose Point of Care 122 mg/dL (70-110)
--- NOTE | 2024-10-31 08:28 | PC.SOCIAL ---
Patient transferred on 10/29/24 to [facility] in [place], there were issues with transportation due to weather
== END 2024-10-29 09:55 | disposition short-term general hospital (02) | DRG 280 ==
LOC: ER 16:46 → ICU 17:47
PROVIDERS: Internal Medicine; Admitting Provider Family Medicine; Emergency Provider Emergency Medicine; Visit Provider Family Medicine
PROC: 04JY3ZZ Inspection of Lower Artery, Percutaneous Approach (ICD-10-PCS; principal; 2024-10-28 21:30)
DX: I21.4 Non-ST elevation (NSTEMI) myocardial infarction (principal); I50.21 Acute systolic (congestive) heart failure; J96.01 Acute respiratory failure with hypoxia; T82.898A Other specified complication of vascular prosthetic devices, implants and grafts, initial encounter; I13.0 Hypertensive heart and chronic kidney disease with heart failure and stage 1 through stage 4 chronic kidney disease, or unspecified chronic kidney disease; J44.1 Chronic obstructive pulmonary disease with (acute) exacerbation; E87.20 Acidosis, unspecified; N17.9 Acute kidney failure, unspecified; N18.31 Chronic kidney disease, stage 3a; E11.22 Type 2 diabetes mellitus with diabetic chronic kidney disease; E11.51 Type 2 diabetes mellitus with diabetic peripheral angiopathy without gangrene; Y71.8 Miscellaneous cardiovascular devices associated with adverse incidents, not elsewhere classified; I70.223 Atherosclerosis of native arteries of extremities with rest pain, bilateral legs; R91.8 Other nonspecific abnormal finding of lung field; F17.200 Nicotine dependence, unspecified, uncomplicated; D72.829 Elevated white blood cell count, unspecified; Z95.0 Presence of cardiac pacemaker; Z85.828 Personal history of other malignant neoplasm of skin; Z79.02 Long term (current) use of antithrombotics/antiplatelets; Z79.84 Long term (current) use of oral hypoglycemic drugs
CPT/HCPCS: 36415; 36416; 36600; 51702; 71045; 71275; 80048; 80053; 80061; 80162; 82009; 82805; 82962; 83036; 83605; 83690; 83735; 83880; 84100; 84145; 84443; 84484; 85025; 85347; 85730; 86140; 87040; 87637; 93005; 93308; 93926; 93971; 94640; 94664; 96365; 96366; 96367; 96372; 96375; 99152; 99285; C1769; C1894; J0456; J0696; J1644; J1815; J1940; J2250; J2270; J3010; J7030; J7050; J7626; Q9967